=== PATIENT | female | born 1955 | race Caucasian/White ===

== ENCOUNTER 2021-06-28 17:00 | Inpatient (IN) | payer MEDICARE ==
[~2021-06-28] VITALS: Ht 170.2 cm; Wt 71.7 kg
[2021-06-28] MEDS ORDERED: temazepam 15mg capsule PO PRN (21:00)
[2021-06-28] MEDS ORDERED: bisacodyl 10mg suppository rectal RC PRN (22:40)
[2021-06-28] MEDS ORDERED: magnesium hydroxide 30ml (MOM) UD suspension PO PRN (22:40)
[2021-06-28] MEDS ORDERED: morphine 2 MG/ML inj. syringe IV PRN ×2 (22:40)
[2021-06-28] MEDS ORDERED: HYDROcodone/acetaminophen 10/325mg tab PO PRN (22:40)
[2021-06-28] MEDS ORDERED: diphenhydrAMINE 50 mg/ml inj IV PRN (22:40)
[2021-06-28] MEDS ORDERED: acetaminophen 325mg tablet PO PRN ×2 (22:40)
[2021-06-28] MEDS ORDERED: ondansetron 4mg rapidly disintigrating tab PO PRN (22:40)
[2021-06-28] MEDS ORDERED: HYDROcodone/acetaminophen 5mg/325mg tablet PO PRN (22:40)
[2021-06-28] MEDS ORDERED: mag hydrox/Alum hydrox/simeth 30ml oral suspension PO PRN (22:40)
[2021-06-28] MEDS ORDERED: ondansetron/PF 4mg/2ml inj IV PRN (22:40)
[2021-06-28] MEDS ORDERED: HYDROmorphone inj. 0.5 MG/0.5 ML DISP.SYRIN IV PRN (22:40)
[2021-06-28] MEDS ORDERED: diphenhydrAMINE 25mg capsule PO PRN (22:40)
[2021-06-28] MEDS ORDERED: ipratropium/albuterol 3ml nebule NEB PRN (22:45)
[2021-06-28 23:30] VITALS: BP 123/64
[2021-06-28] MEDS: normal saline 1000ml 1,000 ML IV SCH (23:40)
[2021-06-29] VITALS (10 sets, daily range): BP systolic 112–135; BP diastolic 62–73
[2021-06-29 00:02] LABS: PHOSPHORUS 2.4 MG/DL (2.3-4.5)
[2021-06-29 00:03] LABS: MAGNESIUM 2.2 MG/DL (1.5-2.4)
[2021-06-29 00:22] LABS: PARTIAL THROMBOPLASTIN TIME 29 SECONDS (22-32)
[2021-06-29] MEDS ORDERED: DICL-182 PO (00:45)
[2021-06-29] MEDS ORDERED: LOSA50TA64 PO (00:45)
[2021-06-29] MEDS ORDERED: ARA20T PO (00:45)
[2021-06-29] MEDS ORDERED: HYDR200T84 PO (00:45)
[2021-06-29 02:34] LABS: BASOPHILS # (AUTO) 0.1 X10'3 (0-0.2); BASOPHILS % (AUTO) 0.5 % (0-1); EOSINOPHILS # (AUTO) 0.7 X10'3 (0-0.9); HEMATOCRIT 25.5 % (35.0-45.0); HEMOGLOBIN 8.5 g/dl (12.0-16.0); LYMPHOCYTES # (AUTO) 0.9 X10'3 (1.1-4.8); LYMPHOCYTES % (AUTO) 5.1 % (21-51); MEAN CORPUSCULAR HEMOGLOBIN 31.7 PG (27.0-31.0); MEAN CORPUSCULAR HGB CONC 33.2 g/dL (33.0-36.5); MEAN CORPUSCULAR VOLUME 95.6 FL (78-98); MEAN PLATELET VOLUME 7.6 FL (7.4-10.4); MONOCYTES # (AUTO) 1.5 X10'3 (0-0.9); NEUTROPHILS % (AUTO) 81.4 % (42-75); PLATELET COUNT 284 X10'3 (140-440); RED BLOOD COUNT 2.67 X10'6 (4.20-5.60); RED CELL DISTRIBUTION WIDTH 15.9 % (11.5-14.5); WHITE BLOOD COUNT 17.2 X10'3 (4.5-11.0)
[2021-06-29 02:51] LABS: ALANINE AMINOTRANSFERASE 28 U/L (12-78); ALBUMIN/GLOBULIN RATIO 0.5 (1.1-1.5); ALKALINE PHOSPHATASE 115 IU/L (46-116); ANION GAP 15 (8-16); ASPARTATE AMINO TRANSFERASE 12 U/L (10-37); BILIRUBIN,TOTAL 0.7 MG/DL (0.1-1.0); BLOOD UREA NITROGEN 31 MG/DL (7-18); BUN/CREATININE RATIO 18.3 (6.6-38.0); CALCIUM 7.7 MG/DL (8.5-10.1); CHLORIDE 106 MMOL/L (99-107); CHOL/HDL RATIO 6.9 (0.00-4.99); CHOLESTEROL 96 MG/DL (0-200); CREATININE 1.69 MG/DL (0.40-0.90); GLUCOSE 81 MG/DL (70-104); HDL CHOLESTEROL 14 MG/DL (35-60); LDL CHOLESTEROL 36 MG/DL (50-100); SODIUM 141 MMOL/L (135-145); TOTAL CARBON DIOXIDE 20.3 MMOL/L (24-32); TOTAL PROTEIN 5.7 G/DL (6.4-8.2); TRIGLYCERIDES 152 MG/DL (20-135); eGFR 30 ML/MIN
[2021-06-29 02:57] LABS: POTASSIUM 2.7 MMOL/L (3.5-5.1)
[2021-06-29] MEDS ORDERED: magnesium Cl slow-release 64mg tablet PO PRN (03:10)
[2021-06-29] MEDS ORDERED: magnesium 4gm in 100ml NS 100 ML IV PRN (03:10)
[2021-06-29] MEDS ORDERED: potassium Cl 20 mEq SR tablet PO PRN ×2 (03:10)
[2021-06-29] MEDS ORDERED: aspirin 325mg tablet PO ONE (03:10)
[2021-06-29 03:36] LABS: MAGNESIUM 2.1 MG/DL (1.5-2.4)
[2021-06-29] MEDS: potassium Cl 40MEQ/1/2NS 520ml 520 ML IV PRN ×2 (05:28→11:36)
[2021-06-29] MEDS: K and/or MAG REPLACEMENT MC SCH ×2 (08:00→20:00)
[2021-06-29] MEDS: piperacillin/tazo 4.5gm/100ml 100 ML IV SCH ×2 (08:45→21:03)
[2021-06-29] MEDS: docusate sod 100mg capsule PO SCH ×2 (08:45→08:53)
[2021-06-29] MEDS: aspirin 325mg tablet PO SCH (08:45)
[2021-06-29] MEDS: heparin, porcine 5000 units/ml vial SQ SCH ×2 (08:46→21:03)
[2021-06-29] MEDS: pantoprazole 40mg Tablet.DR PO SCH (08:46)
[2021-06-29] MEDS ORDERED: famotidine/PF 10 mg/ml inj IV ONE (10:45)
[2021-06-29] MEDS ORDERED: iohexol 300 MG/1 ML 50ml polymer ONE (11:05)
[2021-06-29] MEDS: levoFLOXACIN 750MG TABLET PO SCH (11:18)
[2021-06-29 12:15] LABS: POTASSIUM 3.8 MMOL/L (3.5-5.1)
[2021-06-29] MEDS ORDERED: fentaNYL/PF 50MCG/1 ML 2ML syringe ONE (12:30)
[2021-06-29] MEDS ORDERED: midazolam 1 mg/ML 2ml injection ONE (12:30)
[2021-06-29 12:45] LABS: ISTAT CREATININE 1.5 mg/dL (0.6-1.1); ISTAT HGB 9.5 g/dl (12.0-16.0); ISTAT IONIZED CALCIUM 0.85 mmol/L (1.03-1.32); ISTAT K 3.7 mmol/L (3.5-5.1); POC BUN/CREATININE RATIO 17.3 (6.6-38.0)
[2021-06-29] MEDS ORDERED: propofol inj 20 ML IV ONE (12:50)
[2021-06-29] MEDS ORDERED: LIDOcaine 2% (20mg/ml) 5ml vial ONE (12:51)
--- NOTE | 2021-06-29 13:37 | NUR ---
Malnutrition consult: Pt reports wt loss with decreased appetite per malnutrition risk screen with RN. Pt to OR per EMR, currently NPO. No documentation of how current wt was obtained, likely not scaled and no scaled wt hx in EMR. No recent unintentional weight gain or loss per H&P. Pt with no documented significant decrease in muscle strength or edema and appears well developed well nourished per H&P. Pt currently lacks a minimum of two criteria for malnutrition. Will continue to follow and monitor qualifying criteria. Addendum: 06/29/21 at [address] Amended: Links added.
--- NOTE | 2021-06-29 14:30 | NUR ---
Page Sent promotional table spacer PAGER ID: [phone] MESSAGE: [phone] White. Patient had one ureteral stent placed. Can we feed her tonight? She does not have a diet order. Thanks Eboni [phone]
--- NOTE | 2021-06-29 16:56 | NUR ---
Page Sent promotional table spacer PAGER ID: [phone] MESSAGE: [id number]. Marjorie. Patient needs diet order for dinner. Is heart healthy ok? Eboni [phone]
[2021-06-29] MEDS: normal saline 1000ml 1,000 ML IV SCH (17:04)
--- NOTE | 2021-06-29 17:16 | NUR ---
Student documentation: I have reviewed and agree with all interventions, assessments performed and documented by Buck . Student Medication Administration: For this medication-pass time frame, all medication were reviewed, dispensed, administered and documented per hospital policy by Buck.
--- NOTE | 2021-06-29 18:23 | NUR ---
Problems reprioritized. Patient report given, questions answered & plan of care reviewed with Italia CRAWFORD . Patient eating dinner and in no acute distress.
--- NOTE | 2021-06-29 18:30 | NUR ---
Patient in room PCU 3012. I have received report from Eboni CRAWFORD and had the opportunity to ask questions and assume patient care.
[2021-06-29] MEDS: hydroxychloroquine 200mg tablet PO SCH (20:00)
[2021-06-29] MEDS: losartan 50mg tablet PO SCH (21:07)
[2021-06-30 02:00] VITALS: BP 120/55
[2021-06-30 05:32] LABS: BASOPHILS # (AUTO) 0.1 X10'3 (0-0.2); BASOPHILS % (AUTO) 0.4 % (0-1); EOSINOPHILS # (AUTO) 0.1 X10'3 (0-0.9); EOSINOPHILS % (AUTO) 0.9 % (0-6); HEMATOCRIT 26.9 % (35.0-45.0); HEMOGLOBIN 8.8 g/dl (12.0-16.0); LYMPHOCYTES # (AUTO) 0.3 X10'3 (1.1-4.8); LYMPHOCYTES % (AUTO) 1.9 % (21-51); MEAN CORPUSCULAR HEMOGLOBIN 31.6 PG (27.0-31.0); MEAN CORPUSCULAR HGB CONC 32.8 g/dL (33.0-36.5); MEAN CORPUSCULAR VOLUME 96.3 FL (78-98); MONOCYTES # (AUTO) 0.9 X10'3 (0-0.9); NEUTROPHILS # (AUTO) 14.4 X10'3 (1.8-7.7); NEUTROPHILS % (AUTO) 90.8 % (42-75); PLATELET COUNT 309 X10'3 (140-440); RED BLOOD COUNT 2.79 X10'6 (4.20-5.60); RED CELL DISTRIBUTION WIDTH 15.9 % (11.5-14.5); WHITE BLOOD COUNT 15.8 X10'3 (4.5-11.0)
[2021-06-30 05:46] LABS: ALANINE AMINOTRANSFERASE 20 U/L (12-78); ALBUMIN 2.1 G/DL (3.4-5.0); ALBUMIN/GLOBULIN RATIO 0.6 (1.1-1.5); ALKALINE PHOSPHATASE 113 IU/L (46-116); ANION GAP 14 (8-16); ASPARTATE AMINO TRANSFERASE 10 U/L (10-37); BILIRUBIN,TOTAL 0.7 MG/DL (0.1-1.0); BLOOD UREA NITROGEN 26 MG/DL (7-18); BUN/CREATININE RATIO 20.5 (6.6-38.0); CALCIUM 7.7 MG/DL (8.5-10.1); CHLORIDE 108 MMOL/L (99-107); CREATININE 1.27 MG/DL (0.40-0.90); GLUCOSE 96 MG/DL (70-104); MAGNESIUM 1.9 MG/DL (1.5-2.4); POTASSIUM 4.3 MMOL/L (3.5-5.1); SODIUM 140 MMOL/L (135-145); TOTAL CARBON DIOXIDE 18.1 MMOL/L (24-32); TOTAL PROTEIN 5.9 G/DL (6.4-8.2); eGFR 42 ML/MIN
[2021-06-30 06:00] VITALS: BP 141/77
[2021-06-30] MEDS: heparin, porcine 5000 units/ml vial SQ SCH (07:48)
[2021-06-30] MEDS: aspirin 325mg tablet PO SCH (07:48)
[2021-06-30] MEDS: losartan 50mg tablet PO SCH (07:49)
[2021-06-30] MEDS: piperacillin/tazo 4.5gm/100ml 100 ML IV SCH (07:50)
[2021-06-30] MEDS: pantoprazole 40mg Tablet.DR PO SCH (07:57)
[2021-06-30] MEDS: hydroxychloroquine 200mg tablet PO SCH (08:00)
[2021-06-30] MEDS: K and/or MAG REPLACEMENT MC SCH (08:00)
[2021-06-30] MEDS ORDERED: leflunomide 20mg tablet PO SCH (08:00)
[2021-06-30] MEDS: docusate sod 100mg capsule PO SCH (08:50)
[2021-06-30] MEDS ORDERED: LEVO500T90 PO (10:31)
[2021-06-30] MEDS: levoFLOXACIN 750MG TABLET PO SCH (10:41)
[2021-06-30 11:00] VITALS: BP 121/54
--- NOTE | 2021-06-30 11:51 | NUR ---
PAGED: Anna Slaughter [phone]: IS THE PT GOING HOME WITH VERONICA CHEUNG OR TAKE OUT? [id number]
[2021-06-30] MEDS: normal saline 1000ml 1,000 ML IV SCH (13:04)
--- NOTE | 2021-06-30 14:20 | NUR ---
PT IS STABLE FOR DISCHARGE PER MD ORDERS. ALL DISCHARGE INSTRUCTIONS REVIEWED AND ALL QUESTIONS ANSWERED. PT WILL MAKE OWN FOLLOW UP APPOINTMENTS. NEW RX'S E-SCRIPTED TO [facility] IN [facility]. PICC LINE DISCONTINUED AND PRESSURE HELD. AUTOMOTIVE QUALITY MANAGER DISCONTINUED. ALL BELONGINGS COLLECTED AND SENT WITH PT. [facility].
[2021-06-30] MEDS ORDERED: lactobacillus rhamnosus 10,000 MMU CELLS/CAPSULE PO SCH (20:00)
== END 2021-06-30 14:19 | disposition home or self-care (01) | DRG 659 ==
LOC: UNDOADMIN 17:00 → PCU 3S 17:00
PROVIDERS: ADMIT Family Medicine; ATTEND Family Medicine
PROC: BT1D1ZZ Fluoroscopy of Right Kidney, Ureter and Bladder using Low Osmolar Contrast (ICD-10-PCS; 2021-06-29)
PROC: 0T768DZ Dilation of Right Ureter with Intraluminal Device, Via Natural or Artificial Opening Endoscopic (ICD-10-PCS; principal; 2021-06-29 12:12)
DX: N13.6 Pyonephrosis (principal); I21.A1 Myocardial infarction type 2; I50.33 Acute on chronic diastolic (congestive) heart failure; J18.9 Pneumonia, unspecified organism; I13.0 Hypertensive heart and chronic kidney disease with heart failure and stage 1 through stage 4 chronic kidney disease, or unspecified chronic kidney disease; R78.81 Bacteremia; D84.821 Immunodeficiency due to drugs; N17.0 Acute kidney failure with tubular necrosis; M54.9 Dorsalgia, unspecified; Z20.822 Contact with and (suspected) exposure to COVID-19; R30.0 Dysuria; N18.9 Chronic kidney disease, unspecified; D64.9 Anemia, unspecified; E87.6 Hypokalemia; M06.9 Rheumatoid arthritis, unspecified; Z87.01 Personal history of pneumonia (recurrent); Z79.899 Other long term (current) drug therapy
CPT/HCPCS: 36415; 71045; 76000; 80047; 80053; 80061; 82948; 83605; 83735; 83880; 84100; 84132; 84484; 85025; 85610; 85730; 87040; 87081; 87635; 93005; 94760; A4338; A4618; C1758; C1769; C2617; G0378; J1644; J2001; J2250; J2270; J2543; J2704; J3010; J3480; J3490; J7030; Q9967